=== PATIENT | female | born 1955 | race Caucasian/White ===

== ENCOUNTER 2018-05-26 06:16 | Day surgery (SDC) | payer BC ==
[2018-05-26] MEDS ORDERED: MIDAZOLAM 1 MG/ML 2 ML INJ (09:30)
[2018-05-26] MEDS ORDERED: FENTAnyl 50 MCG/ML VIAL (09:30)
[2018-05-26] MEDS ORDERED: PHENYLephrine (100 MCG/ML) 5ML SYG (09:37)
[2018-05-26] MEDS ORDERED: LIDOCAINE 2% (SDV) 5 ML INJ (10:07)
[2018-05-26] MEDS ORDERED: ONDANSETRON 4 MG INJ (10:07)
[2018-05-26] MEDS ORDERED: PROPOFOL 20 ML (10:07)
[2018-05-26] MEDS ORDERED: CEFAZOLIN 1 GM INJ (10:08)
[2018-05-26] MEDS ORDERED: HYDROmorphONE 1 MG/5 ML IV SYRINGE IV ×3 (10:28→10:30)
[2018-05-26] MEDS ORDERED: MEPERIDINE 25 MG INJ IV (10:30)
[2018-05-26] MEDS ORDERED: LABETALOL HCL 20MG INJ IV (10:30)
[2018-05-26] MEDS ORDERED: hydrALAzine 20 MG INJ IV (10:30)
[2018-05-26] MEDS ORDERED: METOCLOPRAMIDE 10 MG INJ IV (10:30)
[2018-05-26] MEDS ORDERED: ONDANSETRON 4 MG INJ IV (10:30)
[2018-05-26] MEDS ORDERED: KETOROLAC 30 MG INJ IV (10:30)
[2018-05-26] MEDS ORDERED: ACETAMINOPHEN 325 MG TAB PO (10:30)
[2018-05-26] MEDS ORDERED: FENTAnyl 50 MCG/ML VIAL IV (10:30)
[2018-05-26] MEDS ORDERED: DIPHENHYDRAMINE 50 MG INJ IV (10:30)
== END 2018-05-26 11:25 | disposition home or self-care (01) ==
LOC: SDS 06:16
DX: N95.8 Other specified menopausal and perimenopausal disorders (principal); I10 Essential (primary) hypertension; E11.9 Type 2 diabetes mellitus without complications; Z23 Encounter for immunization; E78.5 Hyperlipidemia, unspecified
CPT/HCPCS: 58120; 82962; 84702; 86850; 86900; 86901; 90686